=== PATIENT | female | born 1965 | race Caucasian/White ===

== ENCOUNTER → 2016-08-18 10:03 | Outpatient (CLI) | payer OTHER | END | disposition home or self-care (01) | LOC: D.RAD 08-17 10:00 | DX: Z85.72 Personal history of non-Hodgkin lymphomas (principal) ==

== ENCOUNTER → 2017-03-29 14:02 | Outpatient (CLI) | payer OTHER ==
[2017-03-29 15:06] LABS: BASOPHILS 0.2 % (0-2); EOSINOPHILS 1.7 % (0-7); HEMATOCRIT 39.8 % (36.0-48.0); HEMOGLOBIN 13.7 g/dL (12-16); IMMATURE GRANULOCYTES 0.2 % (0-5); LYMPHOCYTES 39.8 % (15-50); MCH 30.8 pg (26.0-34.0); MCHC 34.4 g/dL (31.0-37.0); MCV 89.4 fL (80.0-100.0); MEAN PLATELET VOLUME 9.9 fL (7.4-10.4); MONOCYTES 7.9 % (2-11); NEUTROPHILS 50.2 % (40-80); PLATELET COUNT 168 10x3/uL (130-400); RBC 4.45 10x6/uL (4.00-5.40); RDW 12.3 % (11.5-14.5); WBC 5.2 10x3/uL (4.8-10.8)
[2017-03-29 15:12] LABS: ALBUMIN 3.7 g/dL (3.4-5.0); ALKALINE PHOSPHATASE 63 U/L (46-116); ALT (SGPT) 17 U/L (10-68); CALC OSMOLALITY 276 mosm/kg (275-300); CALCIUM 8.4 mg/dL (8.5-10.1); CARBON DIOXIDE 26.5 mmol/L (21.0-32.0); CHLORIDE - SERUM 105 mmol/L (98-107); CREATININE - SERUM 0.7 mg/dL (0.6-1.3); GLUCOSE 101 mg/dL (74-106); LDH 149 U/L (81-234); PROTEIN - SERUM 7.1 g/dL (6.4-8.2); SODIUM 138 mmol/L (136-145); UREA NITROGEN 14 mg/dL (7-18); eGFR NON AFRICAN AMERICAN > 90 mL/min (90-120)
== END | disposition home or self-care (01) ==
LOC: D.RT 03-02 14:00 → D.RAD 03-02 15:00 → D.LAB 03-02 15:30 → D.RT 03-09 09:00
PROVIDERS: Internal Medicine Pulmonary Disease
DX: R06.00 Dyspnea, unspecified (principal)

== ENCOUNTER → 2017-11-02 20:48 | Outpatient (CLI) | payer OTHER | END | disposition home or self-care (01) | LOC: D.MAMMO 14:30 | DX: Z12.31 Encounter for screening mammogram for malignant neoplasm of breast (principal); Z85.71 Personal history of Hodgkin lymphoma ==

== ENCOUNTER → 2020-02-21 19:57 | Outpatient (CLI) | payer OTHER | END | disposition home or self-care (01) | LOC: D.LABREF 19:57 | PROVIDERS: ATTEND Internal Medicine Pulmonary Disease | DX: Z11.59 Encounter for screening for other viral diseases (principal) ==

== ENCOUNTER → 2020-02-24 14:08 | Outpatient (CLI) | payer OTHER | END | disposition home or self-care (01) | LOC: D.LAB 01-31 10:00 → D.RT 01-31 10:00 → D.LAB 01-31 10:30 → D.RT 13:30 | PROVIDERS: ATTEND Internal Medicine Pulmonary Disease | DX: J45.991 Cough variant asthma (principal); R93.89 Abnormal findings on diagnostic imaging of other specified body structures; Z11.59 Encounter for screening for other viral diseases ==

== ENCOUNTER → 2020-10-23 10:47 | Day surgery (SDC) | payer OTHER ==
--- NOTE | ~2020-10-23 | HEMODYNAMI ---
PATIENT:RANDI BARRY MEDICAL RECORD: [id number] : 69 [id number] ADMISSION DATE: 10/23/20 Generatedon:111:42 Patient name: RANDI BARRY Patient #: [id number] SSN: : 1965 Date of study: 10/23/2020 Page: Of Hemodynamic Procedure Report Patient Data Patient Demographics Procedure consent was obtained First Name: RANDI Gender: Female Last Name: JHONNY : 1965 Middle Initial: P Age: 55 year(s) Patient #: [id number] Race: Unknown Additional ID: [id number] Contact details Address: [address] [place] [address] State: [place] City: [facility] [place] Zip code: [address] Past Medical History Allergies Allergen Reaction Date Comments Reported Other allergy 10/23/2020 sulfa, PCN Admission Admission Data Admission Date: 10/23/2020 Admission Time: 10:47 Procedure Procedure Types Cath Procedure Peripheral Cath Diagnostic Procedure Miscellaneous Aspiration/Injection (Joint) Procedure Description Procedure Date Procedure Date: 10/23/2020 Procedure Start Time: 11:27 Procedure End Time: 11:41 Procedure Staff Name Function Ruperto Arellano MD Ordering physician Ryan Reyna MD Performing Physician ONIEL CHANDLER RT Monitor Rodrigo HERMAN Scrub Procedure Data Cath Procedure Fluoroscopy Diagnostic fluoroscopy Total fluoroscopy Time: 0.2 time: 0.2 min min Contrast Material Contrast Material Type Amount (ml) Isovue 200 5 Hemodynamics Rest Pre Cath Intra NCS Post Cath Procedure Log Time Note 11:06:53 Rodrigo West RT (R) (CV) sent for patient. Start room use. 11:06:54 Time tracking: Regular hours (M-F 7:00 - 5:00) 11:06:58 Patient received from Other to IR Alert and oriented. Tansferred to table in Supine position. 11:07:01 Signed procedure consent form obtained from patient. 11:07:02 Warm blankets applied, and winter hugger turned on for patient comfort. 11:07:02 Correct patient and procedure confirmed by team. 11:07:04 - 11:07:06 Pre-procedure instructions explained to patient. 11:07:06 Pre-op teaching completed and patient verbalized understanding. 11:13:17 Is patient on blood thinner?No 11:13:31 Patient allergic to Other allergy sulfa, PCN 11:13:34 - 11:13:55 Left Hip was prepped with betadine and draped in sterile fashion. 11:26:07 Physician arrived 11::58 --------ALL STOP TIME OUT------ 11::58 Final Timeout: patient, procedure, and site verified with staff and physician. All members of the team are in agreement. 11:27:01 Left groin site verified by team. 11:27:14 Procedure started. 11:27:14 Full Disclosure recording started 11:27:28 SAFE-T PLUS MYELOGRAM TRAY opened to sterile field. 11:36:47 Procedure ended.(Physican Out) 11:36:54 Fluoroscopy time 00.20 minutes. 11:37:01 Contrast amount:Isovue 200 5ml. 11:37:04 Dose Area Product 21 mGy/cm. 11:37:13 Post-op/insertion site Left Hip dressed using a Bandaid. 11:38:14 Procedure and supply charges have been captured, reviewed, submitted an d are correct. 11:41:46 Procedure ended. 11:41:46 Full Disclosure recording stopped Device Usage Item Name Manufacture Quantity Catalog Hospital Part Current Minimal Lot# / Number Charge Number Stock Stock Serial# Code SAFE-T [employer] 1 [id number] PLUS MYELOGRAM TRAY Signature Audit [place] Stage Time Signature Unsigned Intra-Procedure 10/23/2020 ONIEL CHANDLER RT 11:42:01 AM (R) [place] [id number] [place] [address]
== END | disposition home or self-care (01) ==
LOC: D.RAD 10-12 09:30
PROVIDERS: ATTEND Nurse Practitioner Family
DX: M16.12 Unilateral primary osteoarthritis, left hip (principal)

== ENCOUNTER → 2020-12-21 17:29 | Outpatient (CLI) | payer OTHER | END | disposition home or self-care (01) | LOC: D.LABREF 17:29 | PROVIDERS: ATTEND Orthopaedic Surgery | DX: M16.12 Unilateral primary osteoarthritis, left hip (principal) ==

== ENCOUNTER 2021-01-08 14:45 | Outpatient (CLI) | payer OTHER | END 2021-01-08 23:59 | disposition home or self-care (01) | LOC: D.MAMMO 14:45 | PROVIDERS: ATTEND Nurse Practitioner Family | DX: Z12.31 Encounter for screening mammogram for malignant neoplasm of breast (principal) ==